=== PATIENT | male | born 1980 | race Two or more races ===

== ENCOUNTER 2019-04-20 13:55 | Outpatient (CLI) | payer OTHER | END 2019-04-20 13:56 | disposition home or self-care (01) | LOC: SC 13:55 | PROVIDERS: ATTEND Internal Medicine Pulmonary Disease | DX: R06.83 Snoring (principal); R06.81 Apnea, not elsewhere classified; R53.83 Other fatigue; G47.8 Other sleep disorders; F17.210 Nicotine dependence, cigarettes, uncomplicated; E66.9 Obesity, unspecified; Z68.33 Body mass index [BMI] 33.0-33.9, adult | CPT/HCPCS: 99203; 99212 ==

== ENCOUNTER 2019-05-02 19:29 | Outpatient (CLI) | payer OTHER | END 2019-05-02 19:30 | disposition home or self-care (01) | LOC: SC 19:29 | PROVIDERS: ATTEND Internal Medicine Pulmonary Disease | DX: G47.33 Obstructive sleep apnea (adult) (pediatric) (principal); G47.61 Periodic limb movement disorder | CPT/HCPCS: 95810 ==

== ENCOUNTER 2019-06-03 13:32 | Outpatient (CLI) | payer OTHER | END 2019-06-03 13:33 | disposition home or self-care (01) | LOC: SC 13:32 | PROVIDERS: ATTEND Nurse Practitioner Family | DX: G47.33 Obstructive sleep apnea (adult) (pediatric) (principal) | CPT/HCPCS: 99212; 99214 ==

== ENCOUNTER 2021-11-05 14:11 | Outpatient (CLI) | payer OTHER ==
--- NOTE | 2021-11-05 17:20 | MRI Report ---
PROCEDURE: Knee RT W/O INDICATIONS: KNEE PAIN, FOOT PAIN TECHNIQUE: Noncontrast sagittal PD fast spin echo and T2 fast spin echo with fat saturation, sagittal 3-D gradie nt sequence with fat saturation; coronal T1 spin echo and PD fast spin echo with fat saturation, and axial PD fast spin echo with fat saturation through the knee. COMPARISON: None. FINDINGS: Image quality: Excellent. Menisci: The medial and lateral menisci demonstrate normal morphology and internal signal. The meni scal root ligaments appear intact. Cruciate ligaments: The anterior and posterior cruciate ligaments appear intact. Medial structures: The medial collateral ligament appears intact. Visualized portions of the pes ans erinus tendons appear normal. No abnormal bursal fluid. Lateral structures: The lateral collateral ligament demonstrates mild T2 signal elevation at the fem oral origin. The long and short heads of the biceps femoris tendon appear intact. The popliteus tend on appears normal. Iliotibial band appears normal. Anterior structures: The quadriceps and patellar tendons appear intact. Patellar alignment is celine l. No femoral trochlear dysplasia or ventral trochlear prominence. No edema in the infrapatellar fa t pad. Bones and cartilage: No bone marrow contusions or fractures. Mild articular cartilage loss overlies the medial and lateral patellar facets as well as the medial and lateral femoral trochlea. Joint space: There is physiologic knee joint fluid. No Garvey's cyst. Normal appearing synovial pli are incidentally noted. IMPRESSION: 1. No internal derangement. 2. Low-grade partial-thickness lateral collateral ligament tear. 3. Tricompartmental osteoarthritis with associated articular cartilage loss. Reviewed by: Jhonny Philip MD on 11/05/2021 4:19 PM [place] Approved by: Jhonny Philip MD on 11/05/2021 4:19 PM [place] Station ID: [id number]
--- NOTE | 2021-11-05 20:05 | MRI Report ---
PROCEDURE: Foot RT W/O INDICATIONS: KNEE PAIN, FOOT PAIN TECHNIQUE: Noncontrast sagittal T1 spin echo and T2 fast spin echo with fat saturation, long-axis T1 spin echo a nd T2 fast spin echo with fat saturation, short-axis T1 spin echo and T2 fast spin echo with fat satu ration through the forefoot. COMPARISON: None. FINDINGS: Image quality: Excellent. Bones and joints: No bone marrow contusions or metatarsal stress fractures. Mild degenerative change s are seen at the first metatarsophalangeal joint and the metatarsosesamoid articulations. Moderate d egenerative changes are seen in the first tarsometatarsal joint with subchondral cystic changes and m arginal osteophyte formation along the plantar aspect. Mild degenerative changes are seen at the plan tar fourth tarsometatarsal joints with subchondral cystic changes. Mild scattered degenerative change s are seen in the interphalangeal joints of the toes. No intraosseous lesions. Soft tissues: A small ganglion cyst is seen at the plantar medial aspect of the first tarsometatarsa l joint measuring 5 x 5 x 2 mm. There is mild adjacent soft tissue edema. The visualized plantar foot muscles demonstrate normal signal and bulk. Visualized flexor and extensor tendons appear intact, w ithout tenosynovitis. No interdigital mass is seen. A small intermetatarsal bursal effusion is seen a t the third interspace. Sagittal images demonstrate no evidence for plantar plate tears. IMPRESSION: 1.Moderate degenerative changes at the plantar medial aspect of the first tarsometatarsal joint with subchondral cystic changes and marginal osteophyte formation. There is an adjacent 5 mm ganglion cyst and mild adjacent nonspecific soft tissue edema. Findings may be secondary to primary osteoarthrosis versus posttraumatic degenerative changes, or possibly an inflammatory process such as gout. 2.Additional mild scattered degenerative changes throughout the midfoot and forefoot as described abo ve. Reviewed by: Fernandez Bustos MD on 11/05/2021 8:04 PM PST Approved by: Fernandez Bustos MD on 11/05/2021 8:04 PM PST Station ID: [id number]
== END 2021-11-05 14:12 | disposition home or self-care (01) ==
LOC: DI 14:11
PROVIDERS: ATTEND Student in an Organized Health Care Education/Training Program
DX: S83.421A Sprain of lateral collateral ligament of right knee, initial encounter (principal); M19.071 Primary osteoarthritis, right ankle and foot; M67.471 Ganglion, right ankle and foot; R60.0 Localized edema

== ENCOUNTER 2023-09-03 07:45 | Outpatient (CLI) | payer OTHER ==
[2023-09-03 12:06] LABS: CALCIUM 10.1 mg/dL (8.5-10.3); CREATININE 0.8 mg/dL (0.6-1.3); POTASSIUM 4.3 mmol/L (3.5-4.5); URIC ACID 7.8 mg/dL (4.4-7.6)
== END 2023-09-03 08:00 | disposition home or self-care (01) ==
LOC: LAB.N 07:45
PROVIDERS: ATTEND Family Medicine
DX: M10.9 Gout, unspecified (principal)
CPT/HCPCS: 36415; 80048; 84550